=== PATIENT | female | born 1965 | race Hispanic/Latino ===

== ENCOUNTER 2017-09-27 09:09 | Emergency (ER) | payer MEDICAID ==
[2017-09-27 09:49] VITALS: BP 146/72
== END 2017-09-27 11:09 ==
LOC: ED 09:09
DX: J02.9 Acute pharyngitis, unspecified (principal); H92.09 Otalgia, unspecified ear; Z53.21 Procedure and treatment not carried out due to patient leaving prior to being seen by health care provider